=== PATIENT | female | born 1995 | race American Indian/Alaskan Native ===

== ENCOUNTER 2021-09-23 18:58 | Emergency (ER) | payer SELFPAY ==
[2021-09-23 20:49] VITALS: BP 147/103
[2021-09-23 21:45] LABS: Basophils # (Auto) 0.1 K/mm3 (0.0-0.1); Basophils % (Auto) 0.8 % (0.0-1.8); Eosinophils # (Auto) 0.1 K/mm3 (0.0-0.4); Eosinophils % (Auto) 1.9 % (0.0-4.3); Hemoglobin 13.5 gm/dl (10.1-14.3); Lymphocytes # (Auto) 3.2 K/mm3 (1.2-5.4); Lymphocytes % (Auto) 41.1 % (13.4-35.0); Mean Corpuscular HGB Conc 33 % (30-34); Mean Corpuscular Volume 100 fl (79-97); Monocytes # (Auto) 0.3 K/mm3 (0.0-0.8); Monocytes % (Auto) 4.5 % (0.0-7.3); Platelet Count 254 K/mm3 (140-440); Red Blood Count 4.09 M/mm3 (3.65-5.03)
[2021-09-23 23:37] LABS: Bilirubin,Urine NEG (Negative); Blood,Urine NEG (Negative); Color,Urine Yellow (Yellow); Mucus,Urine 2+ /HPF; Protein,Urine <15 mg/dL mg/dL (Negative)
[2021-09-24] MEDS ORDERED: LIDOCAINE-MPF (1%) 10 MG/1 ML VIAL 5 ML INFILTRATI ONE (01:02)
--- NOTE | 2021-09-24 01:52 | Emergency Department Report ---
ED Female HPI - General Chief complaint: Vaginal Bleeding Stated complaint: VAGINAL BLEEDING Source: patient Mode of arrival: Ambulatory Limitations: No Limitations - History of Present Illness Initial comments: Patient is a A0 26-year-old -Iranian female with no past medical history presented to the ED with complaint of acute onset persistent hematuria, vaginal spotting and vaginal discharge for the last 3 days. Patient states that her last sexual encounter was over 1 week ago and that she suspects that she may have been exposed to STD since her sexual partner was an ex boyfriend. Patient denies dysuria, urinary frequency and urgency, fever, chills, dyspareunia, low back pain, nausea and vomiting or diarrhea or abdominal pain, cough or sore throat. MD Complaint: vaginal bleeding, vaginal discharge, possible STD -: Sudden, days(s) (3) Location: other (Vaginal) Radiation: non-radiating Severity: mild Severity scale (0 -10): 3 Quality: dull Consistency: constant Improves with: none Worsens with: urination, intercourse Are you Now?: No Last Menstrual Period: 09/06/21 EDC: 06/13/22 Associated Symptoms: denies other symptoms, vaginal discharge, vaginal bleeding. denies: abdominal pain, nausea/vomiting, fever/chills, headaches, loss of appetite, dysuria, hematuria, rash, seizure, shortness of breath, syncope, weakness, other - Related Data Sexually active: Yes : 1 Para: 1 A: 0 Previous Rx's Medication Instructions Recorded Last Taken Type DOXYCYCLINE Hyclate [Vibramycin 100 mg PO Q12HR #28 capsule 09/24/21 Unknown Rx CAP] Fluconazole [Diflucan TAB] 200 mg PO QDAY #2 tablet 09/24/21 Unknown Rx metroNIDAZOLE [Flagyl] 500 mg PO Q12HR #14 tab 09/24/21 Unknown Rx Allergies Allergy/AdvReac Type Severity Reaction Status Date / Time No Known Allergies Allergy Unverified 09/23/21 20:49 ED Review of Systems ROS: Stated complaint: VAGINAL BLEEDING Other details as noted in HPI Constitutional: denies: chills, fever Eyes: denies: eye pain, eye discharge, vision change ENT: denies: ear pain, throat pain Respiratory: denies: cough, shortness of breath, wheezing Cardiovascular: denies: chest pain, palpitations Endocrine: no symptoms reported Gastrointestinal: denies: abdominal pain, nausea, diarrhea Genitourinary: frequency, hematuria, discharge, abnormal menses (Vaginal spotting). denies: urgency, dysuria Musculoskeletal: denies: back pain, joint swelling, arthralgia Skin: denies: rash, lesions Neurological: denies: headache, weakness, paresthesias Psychiatric: denies: anxiety, depression Hematological/Lymphatic: denies: easy bleeding, easy bruising ED Past Medical Hx - Past Medical History Previous Medical History?: No - Surgical History Past Surgical History?: No - Medications Home Medications: Home Medications Medication Instructions Recorded Confirmed Last Taken Type DOXYCYCLINE Hyclate [Vibramycin 100 mg PO Q12HR #28 capsule 09/24/21 Unknown Rx CAP] Fluconazole [Diflucan TAB] 200 mg PO QDAY #2 tablet 09/24/21 Unknown Rx metroNIDAZOLE [Flagyl] 500 mg PO Q12HR #14 tab 09/24/21 Unknown Rx ED Physical Exam - General Limitations: No Limitations General appearance: alert, in no apparent distress - Head Head exam: Present: atraumatic, normocephalic, normal inspection - Eye Eye exam: Present: normal appearance, PERRL, EOMI Pupils: Present: normal accommodation - ENT ENT exam: Present: normal exam, normal orophraynx, mucous membranes moist, TM's normal bilaterally, normal external ear exam - Neck Neck exam: Present: normal inspection, full ROM - Respiratory Respiratory exam: Present: normal lung sounds bilaterally. Absent: respiratory distress, wheezes, chest wall tenderness, accessory muscle use - Cardiovascular Cardiovascular Exam: Present: regular rate, normal rhythm, normal heart sounds. Absent: systolic murmur, diastolic murmur, rubs, gallop - GI/Abdominal GI/Abdominal exam: Present: soft, normal bowel sounds. Absent: tenderness, guarding, rebound, hyperactive bowel sounds, hypoactive bowel sounds, organomegaly, mass - Bi-manual exam: Present: other (Pelvic exam deferred, patient preferred self swab) - Extremities Exam Extremities exam: Present: normal inspection, full ROM, normal capillary refill - Back Exam Back exam: Present: normal inspection, full ROM. Absent: tenderness, CVA tender ness (R), CVA tenderness (L), muscle spasm, paraspinal tenderness, vertebral tenderness - Neurological Exam Neurological exam: Present: alert, oriented X3, CN II-XII intact, normal gait, reflexes normal - Psychiatric Psychiatric exam: Present: normal affect, normal mood - Skin Skin exam: Present: warm, dry, intact, normal color. Absent: rash ED Course Vital Signs 09/23/21 20:46 Temperature 98.2 F Pulse Rate 67 Respiratory 18 Rate Blood Pressure 147/103 O2 Sat by Pulse 100 Oximetry ED Medical Decision Making - Lab Data Result diagrams: 09/23/21 21:23 - Medical Decision Making This is a A0 26-year-old -Iranian female with no past medical history presented to the ED with complaint of acute onset persistent hematuria, vaginal spotting and vaginal discharge for the last 3 days. Patient states that her last sexual encounter was over 1 week ago and that she suspects that she may have been exposed to STD since her sexual partner was an ex boyfriend. In the ED, patient is alert and oriented x3 and is not in any distress. Patient is hemodynamically stable. Urinalysis showed mild urinary tract infection. Wet prep test was positive for Gardnerella vaginalis consistent with bacterial vaginosis. Patient was empirically treated in the ED with Rocephin 1 g intramuscular injection, and was discharged home on empirical treatment for suspected chlamydia infection with doxycycline 100 mg every 12 hours for 14 days as well as Flagyl 500 mg every 12 hours for 7 days. Patient was advised to follow-up with [facility] department for further evaluation especially STD testing such as HIV and syphilis. Patient was also advised to practice safe sexual intercourse or abstain from sexual activity. Patient was also advised to inform her sexual partner to get tested for STDs. Patient was a dvised to return to the ED immediately if symptoms get worse. - Differential Diagnosis STD exposures; UTI; bacterial vaginosis; chlamydia; gonorrhea; trichomonas Critical care attestation.: If time is entered above; I have spent that time in minutes in the direct care of this critically ill patient, excluding procedure time. ED Disposition Clinical Impression: Acute urinary tract infection, Bacterial vaginosis, Possible exposure to STD Disposition: 01 HOME / SELF CARE / HOMELESS Is pt being admited?: No Does the pt Need Aspirin: No Condition: Stable Instructions: Urinary Tract Infection, Adult, [id number], Bacterial Vaginosis, [id number], Bacterial Vaginosis (ED) Additional Instructions: Take medication with food, drink plenty of fluids and follow-up with the [facility] for further STD testing including HIV and syphilis. Ensure that your sexual partner also gets evaluated and treated. Observe safe sexual practices at all times if you are unable to abstain from sexual activity. Return to the ED immediately if your symptoms get worse. Prescriptions: Fluconazole [Diflucan TAB] 200 mg PO QDAY #2 tablet metroNIDAZOLE [Flagyl] 500 mg PO Q12HR #14 tab DOXYCYCLINE Hyclate [Vibramycin CAP] 100 mg PO Q12HR #28 capsule Referrals: [facility] [Outside] - 7-10 days Forms: STI Treatment and Prevention Time of Disposition: 01:50 Print Language: ARMENIAN
== END 2021-09-24 02:32 | disposition home or self-care (01) ==
LOC: ED 18:58
DX: N39.0 Urinary tract infection, site not specified (principal); N76.0 Acute vaginitis; B96.89 Other specified bacterial agents as the cause of diseases classified elsewhere; Z20.2 Contact with and (suspected) exposure to infections with a predominantly sexual mode of transmission; Z79.899 Other long term (current) drug therapy
CPT/HCPCS: 36415; 81001; 84703; 85025; 87086; 87210; 96372; 99283; J0696; J3490; 99284